=== PATIENT | male | born 1945 | race Caucasian/White ===

== ENCOUNTER 2018-10-22 19:20 | Inpatient (IN) | payer OTHER ==
[~2018-10-22] VITALS: Ht 160 cm; Wt 102.1 kg
--- NOTE | ~2018-10-22 | EEG ---
[facility] [place] [place] [address] ELECTROENCEPHALOGRAM Name: MAYRA ORDOÑEZ Room #: 216-P [facility] IN M.R.#: [id number] Admission: 10/22/18 Attend Phys: Shaji Goldman MD Discharge: Date of : 47 Report #: [id number] THIS REPORT FOR: //name// CC: Roderick Goldman DATE OF SERVICE: 10/23/2018 This patient's EEG was done by placing the electrode by standard 10-20 system of electrode placement. Both referential and sequential montages were used for recording. The patient's background activity is about 8-9 Hz and 30 microvolt. The patient went to sleep and that is associated with bilateral slowing and vertex sharp waves. Photic stimulation is unremarkable. Throughout the record, no active epileptiform activity was noticed. IMPRESSION: This patient's EEG is intermixed with some theta range slowing on both sides. That is a nonspecific abnormality, which can occur with drowsiness, effect of psychotropic medication, dementia, encephalopathy, etc. No active epileptiform activity was noticed. Thank you very much for this referral. By: [id number] Darci Vargas MD /nt
--- NOTE | ~2018-10-22 | HC ---
[facility] [place] [address] CONSULTATION Name: MAYRA ORDOÑEZ Room #: 216-P [facility] IN .R.#: [id number] Admission: 10/22/18 Attend Phys: Shaji Goldman MD Discharge: Date of : 46 Report #: [id number] THIS REPORT FOR: //name// CC: Roderick Goldman DATE OF SERVICE: 10/25/2018 HISTORY OF PRESENT ILLNESS: The patient is a 73-year-old white male admitted to [facility] with worsening confusion at home. He was noted to have markedly elevated blood pressure 240/110 at [place] and was transferred to [facility]. He was noted to have word finding problems, slurred speech and significant mental status issues. V/Q scan showed an old lacunar infarct. MRI of the brain was negative for a CVA. He was diagnosed with hypertensive encephalopathy as per Neurology. He is noted to have significant memory and cognitive deficits. His noted that he was having some problems with some confusion while driving approximately a month ago, but otherwise this is relatively recent. PAST MEDICAL HISTORY: Includes coronary artery bypass grafting, arthritis, hypertension. He has had 2 back surgeries, elevated cholesterol, chronic low back pain. HABITS: Former tobacco abuse, quit back in 1979. MEDICATIONS: Please see the full medication listing. SOCIAL HISTORY: Lives with , 2-ken house, can stay on the main level, premorbid single point cane ambulator, 3 steps in. works part-time, but is able to take time off to be with him. She does have a sister involved and they are involved neighbors. REVIEW OF SYSTEMS: Did not offer any current complaints of chest pain, shortness of breath or abdominal discomfort. PHYSICAL EXAMINATION: GENERAL: A 73-year-old overweight white male. He was confused and apparently was having some visual hallucinations of some dogs just prior to my coming in. He was uncertain regarding the place. He thought the year was 1919. He was correct, however, regarding the month and he knew who the president was. There is a definite latency to his responses. VITAL SIGNS: Temperature 98, pulse 72, respirations 18, blood pressure 110/54. Follows basic commands. HEENT: Facies are symmetric. EXTREMITIES: Functional range of motion of both upper and lower extremity strength is a grade 4- to 3+/5. DTRs are trace to 1. No focal calf swelling. [facility] [address] [place] [address] CONSULTATION Name: MAYRA ORDOÑEZ Room #: 216-P [facility] IN .R.#: [id number] Admission: 10/22/18 Attend Phys: Shaji Goldman MD Discharge: Date of : 46 Report #: [id number] Tone appeared to be intact. He was min assist with sit to stand. Gait was min assist 25 feet with a front-wheeled walker. He does have moderate cognitive and memory deficits per speech therapy. ASSESSMENT: A 73-year-old white male with the following problem list: 1. Hypertensive encephalopathy. 2. Functional mobility, ADLs and cognitive deficits. 3. Moderate cognitive and memory deficits. 4. Coronary artery disease with prior coronary artery bypass grafting. 5. Hyperlipidemia. 6. Exogenous obesity. 7. Chronic back pain with history of multiple failed surgeries. 8. Insomnia. PLAN: I would recommend an acute in-hospital inpatient rehabilitation stay. He has significant cognitive and functional deficits. He would benefit from a comprehensive rehabilitation program to maximize his functional independence and also to help educate the . Insurance precertification issues are being checked in too. Thank you for asking us to assist in this patient's care. By: [id number] Marvel Ramirez MD /[facility]
--- NOTE | ~2018-10-22 | HC ---
[facility] [place] [address] CONSULTATION Name: MAYRA ORDOÑEZ Room #: 216-P [facility] IN M.R.#: [id number] Admission: 10/22/18 Attend Phys: Shaji Goldman MD Discharge: Date of : 46 Report #: [id number] THIS REPORT FOR: //name// CC: Roderick Goldman DATE OF SERVICE: 10/27/2018 IDENTIFICATION: Psychiatric consultation is requested for hallucinations. HISTORY OF PRESENT ILLNESS: The patient is a 73-year-old , retired male with no past history of dementia, depression, guille, psychosis or anxiety. The patient is in the hospital after hypertensive emergency. He has been confused throughout his hospital stay and has been having active vivid visual hallucinations along with some agitation with regards to wanting to leave the hospital. He had taken some trazodone to help with sleep due to several nights without sleep. was concerned that the trazodone worsens his agitation and so it has been discontinued. He has not received any antipsychotics in this hospital stay. The patient's reports the patient took some Tylenol 3 about 6 weeks ago and began having some memory problems following that. She denies any past history of the patient having any psychosis and reports that he is far from baseline. On interview, the patient admits to having vivid visual hallucinations and having some confusion. ALLERGIES: PENICILLIN. MEDICATIONS: Reviewed. No active psychiatric medication. PAST MEDICAL HISTORY: Hypertension with hypertensive emergency, coronary artery disease status post coronary artery bypass graft in 2003, hyperlipidemia, chronic back pain, osteoarthritis. FAMILY HISTORY: Noncontributory. SOCIAL HISTORY: , lives with ___, no substance abuse reported. Labs reviewed and include a bilirubin of 1.3. MENTAL STATUS EXAMINATION: He is lethargic with poor attention, poor concentration, falls asleep easily on the interview. Speech is slurred. He endorses vivid visual hallucinations. No suicidal or homicidal ideation. No delusions. He does have confusion, poor short-term memory. Affect [facility] and [facility] [address] [place] [address] CONSULTATION Name: MAYRA ORDOÑEZ Nai [facility]: [facility] IN [facility].#: [id number] Admission: 10/22/18 Attend Phys: Shaji Goldman MD Discharge: Date of : 46 Report #: [id number] euthymic. Insight and judgment are poor. DIAGNOSIS: Delirium. PLAN: The patient currently with delirium of multifactorial etiology, hypertensive emergency appears to be a major contributing factor. Blood pressure is under much better control at this point, but I do note that the patient did have rapid changes in his blood pressure with some hypotension during his hospital stay and this could contribute ____ as well. Hopefully, patient's mental status will continue to clear. I do agree with on ____ medical workup to rule out any other causes. It is possible that the patient may have some mild underlying dementia, which has now been exacerbated by labile blood pressures. I offered to start a scheduled antipsychotic, the patient's declines at this time; however, she was agreeable to a low dose of Haldol to be given only in case of agitation ____ directed. I have ordered Haldol 1 mg IM q.4 p.r.n. Thank you for this consult ____. Please contact us with any urgent questions or concerns. By: [id number] Jaelyn Vásquez MD /nt
[2018-10-22 19:22] VITALS: BP 147/66
[2018-10-22] MEDS ORDERED: LIPITOR40 MG PO (20:42)
[2018-10-22] MEDS ORDERED: ASPIRIN325 PO (20:42)
[2018-10-22] MEDS ORDERED: TOPROL XL50 MG PO (20:43)
[2018-10-22] MEDS ORDERED: CELEBREX 200 M200 M1 PO (20:43)
[2018-10-22] MEDS ORDERED: CHLORTHALIDONE25 MG PO (20:44)
[2018-10-22] MEDS ORDERED: BENICAR40 MG PO (20:44)
[2018-10-22] MEDS ORDERED: NORVASC5 MG PO (20:45)
[2018-10-22 23:48] VITALS: BP 142/68
[2018-10-22 23:49] LABS: CHOLESTEROL 104 mg/dL (<200); HDL CHOLESTEROL 41 mg/dL (>40); LDL CHOLESTEROL 48 mg/dL (<100); TC:HDL 2.5 Ratio (Not establshd); TRIGLYCERIDE 76 mg/dL (<150); TROPONIN-I <0.06 ng/mL (<0.06); VLDL 15 mg/dL (<40)
[2018-10-22 23:53] LABS: SERUM ASSESSMENT Clear
[2018-10-23] VITALS (15 sets, daily range): BP systolic 148–201; BP diastolic 53–82
[2018-10-23 00:50] LABS: URINE BILIRUBIN NEGATIVE (Negative); URINE BLOOD NEGATIVE (Negative); URINE CLARITY CLEAR; URINE COLOR YELLOW; URINE GLUCOSE-RANDOM* NEGATIVE (Negative); URINE KETONES NEGATIVE (Negative); URINE LEUKOCYTES NEGATIVE (Negative); URINE NITRITE NEGATIVE (Negative); URINE PROTEIN (DIPSTICK) TRACE (Negative); URINE SPECIFIC GRAVITY 1.025 (1.005-1.035)
--- NOTE | 2018-10-23 01:10 | NUR ---
CODE STROKE ACTIVATED FOR ACUTE NEURO DEFICITS WITH SPEECH BEING MOST PROMINENT DEFICIT. SEE STROKE FLOWSHEET FOR NIH SCORE, VITALS, ETC. PT TO REMAIN ON THE UNIT.
[2018-10-23] MEDS ORDERED: LINZESS72 MCG PO (02:45)
[2018-10-23 05:05] LABS: APTT 23.3 Seconds (24.5-32.8); HEMOGLOBIN 13.8 gm/dL (14.0-18.0); INR 1.1; PROTIME 11.1 Seconds (9.3-11.4); WBC 6.1 thou/uL (4.0-11.0)
[2018-10-23 05:06] LABS: BASOPHILS 0.6 % (0.0-2.0); EOSINOPHILS 1.5 % (0.0-3.0); HEMATOCRIT 40.8 % (42.0-52.0); LYMPHOCYTES 32.2 % (24.0-44.0); MCH 30.7 pg (26.0-34.0); MCHC 33.9 % (28.0-37.0); MCV 90.6 fL (80.0-100.0); MONOCYTES 9.2 % (1.0-8.0); PLATELET COUNT 183 thou/uL (150-400); POLYS 56.5 % (36.0-66.0); RDW 13.3 % (10.5-14.5)
--- NOTE | 2018-10-23 05:07 | NUR ---
PT ARRIVED DIRECT ADMIT FROM [facility] VIA EMS AT 1900. ADMISSION HX AND ASSESSMENT COMPLETED CHARTED. NOTIFIED LARYNGOLOGIST STABLE HAND FOR HOSPITALIST OF NEW ADMIT AND NEED FOR ORDERS. UPON ADMISSION, PT WAS ORIENTED X4 BUT FORGETFUL. HE WAS ABLE TO HAVE CONVERSATIONS WITH NURSING STAFF AND FAMILY. DENIED ANY CURRENT PAIN WHILE AT REST. HOWEVER, HE STATED HE DOES HAVE CHRONIC BACK PAIN, MOSTLY WITH MOVEMENT AND ACTIVITY. BP STABLE. AROUND 2350, LARYNGOLOGIST FOR HOSPITALIST WENT TO PT'S ROOM AND FOUND HIM TO BE CONFUSED WITH SLURRED SPEECH AND EXPRESSIVE APHASIA. RN WAS CALLED TO PT'S ROOM. BP STABLE. CODE STROKE ACTIVATED. PT TAKEN TO CT SCAN. LARYNGOLOGIST UPDATED ON RESULTS. DR GORDILLO CONSULTED AND NOTIFIED OF PT EVENT. DR GORDILLO SPOKE WITH LARYNGOLOGIST REGARDING PT'S SYMPTOMS. NIH HAS SINCE IMPROVED. PT'S SPEECH IS MORE INTELLIGIBLE NOW AND APHASIA HAS IMPROVED. PT IS ABLE TO ANSWER QUESTIONS MORE EASILY WITH MORNING ASSESSMENT. PER PT'S REQUEST HE SAT IN CHAIR DURING THE NIGHT. PT SLEPT OFF AND ON DURING THE SHIFT. FALL PRECAUTIONS IN PLACE. PROGRESSING SLOWLY TOWARD POC GOALS. WILL CONTINUE TO MONITOR FURTHER.
--- NOTE | 2018-10-23 06:18 | NUR ---
PT DID NOT DRINK MUCH DURING THE NIGHT. VOIDED SMALL AMOUNT THIS MORNING. BLADDER SCAN PVR =203ML. PT ENCOURAGED DRINK SOME WATER TO STAY HYDRATED.
--- NOTE | 2018-10-23 07:57 | EKG ---
[place] [address] [facility] [place] [address] ELECTROCARDIOGRAM REPORT Name: NILSA ORDOÑEZRY Nai Room #: 216-P ADM IN M.R.#: [id number] Admission: 10/22/18 Attend Phys: Shaji Goldman MD Discharge: Date of : 47 Report #: [id number] THIS REPORT FOR: //name// [facility] Test Date: 2018-10-22 Test Time: 23:14:35 Pat Name: MAYRA ORDOÑEZ Department: Room: 216 P Gender: M Application Operations Engineer: JOHN : 1945 Requested By: Aydee Garner Order Number: [id number] MD: Moe Carlos Measurements Intervals [place] Rate: 65 P: 11 WA: 185 QRS: -12 QRSD: 128 T: -6 QT: 440 QTc: 458 Interpretive Statements Sinus rhythm Poor R wave progression Possible Inferior infarct, old Compared to ECG 12/07/2003 06:58:21 No significant change was found Electronically Signed On 10-23-2018 7:57:46 CDT by Moe Carlos [email or web address] <ELECTRONICALLY SIGNED> By: Moe Carlos MD, [facility] 10/23/18 [id number] Moe Carlos MD, [facility] /EPI
--- NOTE | 2018-10-23 08:46 | NUR ---
management coordinator to see patient. pt sitting upright in chair. pleasant disposition. patient recalls entire event last night. states he was having a difficult time speaking. symptoms resolved. I explained the next course of events to happen. patient concerned with MRI exam and states he cannot complete secondary to back pain. this rn spoke with nurse and requested an order be obtained prior to MRI. I will continue to follow this patients stay and continue to monitor.
--- NOTE | 2018-10-23 16:17 | NUR ---
Met with patient who admits with stroke like symptoms. Patient transferred to [facility] from [facility]. Patient independent with adls station captain. He reports all needs on one level. He does not drive. He uses a cane for ambulation and sleeps in reclyner. Patient hopeful for dc home soon. Casemgt following for dc planning.
--- NOTE | 2018-10-23 16:50 | 2DMMODE ---
[facility] [place] [address] 2 D/M-MODE ECHOCARDIOGRAM Name: MAYRA ORDOÑEZ Room #: 216-P [facility] IN ..#: [id number] Admission: 10/22/18 Attend Phys: Shaji Goldman MD Discharge: Date of : 47 Date of Service: 10/23/18 1650 Report #: [id number] THIS REPORT FOR: //name// APPROVED REPORT Study performed: 10/23/2018 13:16:21 EXAM: Comprehensive 2D, Doppler, and color-flow Echocardiogram Patient Location: Bedside Room #: 216 Status: routine BSA: 2.03 HR: 67 bpm BP: 201/81 mmHg Rhythm: NSR Other Information Study Quality: Fair Indications CVA/TIA CAD Hypertension/HDD Echo Enhancing Agent Indication: Rule out Shunt Agent(s) / Amount(s) Used: Agitated Saline 7 cc 2D Dimensions IVSd: 11.63 (7-11mm) LVOT Diam: 20.37 (18-24mm) LVDd: 47.89 mm PWd: 12.26 (7-11mm) Ascending Ao: 31.21 (22-36mm) LVDs: 30.92 (25-40mm) Aortic Root: 32.79 mm IVC: 14.00 mm Volumes Left Atrial Volume (Systole) Single Plane 4CH: 73.86 mL Single Plane 2CH: 69.01 mL LA ESV Index: 41.00 mL/m2 Aortic Valve AoV Peak Miles.: 1.89 m/s AO Peak Gr.: 14.33 mmHg LVOT Max P.73 mmHg LVOT Max V: 0.97 m/s TARAH Vmax: 1.66 cm2 [facility] [address] [place] [address] 2 D/M-MODE ECHOCARDIOGRAM Name: MAYRA ORDOÑEZ Room #: [address] [place] [address] [address] [facility]#: [id number] Admission: 10/22/18 Attend Phys: Shaji Goldman MD Discharge: Date of : 47 Date of Service: 10/23/18 1650 Report #: [id number] Tricuspid Valve TR Peak Miles.: 2.60 m/s TR Peak Gr.: 26.95 mmHg PA Pressure: 32.00 mmHg Left Ventricle The left ventricle is normal size. There is normal LV segmental wall motion. Mild concentric left ventricular hypertrophy. The left ventricular systolic function is normal. The left ventricular ejection fraction is within the normal range. LVEF is 50-55%. The left ventricular diastolic function is abnormal. Right Ventricle The right ventricle is normal size. The right ventricular systolic function is normal. Atria The left atrium size is normal. No shunting by contrast bubble injection The right atrium size is normal. Aortic Valve The aortic valve is mildly calcified. Mild aortic regurgitation. There is no aortic valvular stenosis. Mitral Valve The mitral valve is normal in structure. Trace to mild mitral regurgitation. No evidence of mitral valve stenosis. Tricuspid Valve The tricuspid valve is normal in structure. There is trace tricuspid regurgitation. Estimated PAP 32 mmHg. There is mild pulmonary hypertension. Pulmonic Valve The pulmonary valve is normal in structure. There is no pulmonic valvular regurgitation. Great Vessels The aortic root is normal in size. IVC is normal in size and collapses >50% with inspiration. Pericardium There is no pericardial effusion. <Conclusion> [facility] [address] [place] [address] 2 D/M-MODE ECHOCARDIOGRAM Name: MAYRA ORDOÑEZ Room #: 216-P [facility] IN M.R.#: [id number] Admission: 10/22/18 Attend Phys: Shaji Goldman MD Discharge: Date of : 47 Date of Service: 10/23/181649 Report #: [id number] The left ventricular systolic function is normal. There is normal LV segmental wall motion. LVEF is 50-55%. No shunting by contrast bubble injection The aortic valve is mildly calcified. Mild aortic regurgitation, no significant stenosis. The mitral valve is normal in structure. Trace to mild mitral regurgitation. There is trace tricuspid regurgitation. Estimated pulmonary artery pressure of 32 mmHg. There is no pericardial effusion. <ELECTRONICALLY SIGNED> By: Moe Carlos MD, [facility] 10/23/181649 49 49 Moe Carlos MD, FACC /INF
--- NOTE | 2018-10-23 19:44 | NUR ---
ASSUMED PATIENT CARE AT 0700. A/O X4 BUT FORGETFUL. NIH WAS 0. ELEVATED BP. PATIENT DENIES PAIN. UP WITH STANDBY. NOT WARDS TO POC GOALS.
[2018-10-24 00:45] VITALS: BP 165/71
--- NOTE | 2018-10-24 03:28 | NUR ---
ASSUMED PT CARE AT 1900. PT CONFUSED, BUT FOLLOWS SIMPLE COMMANDS. BLOOD PRESSURE ELEVATED EVEN AFTER A 1930 HYDRALAZINE WAS GIVEN. STEEL ROD BUSTER CONTACTED, CLONIDINE OREDERED WHICH SEEMED TO HELP. ASSESSMENT CHARTED. NO COMPLAINTS OF PAIN. PT CLOSE TO NURSING STATION, IN RECLINER. FALL PRECAUTIONS MAINTAINED. PT RESTED WELL THROUGH THE NIGHT. BP MONITORED AND TREATED APPROPRIATELY. PROGRESSING SLOWLY TOWARD PLAN OF CARE. WILL CONTINUE TO MONITOR.
[2018-10-24 04:45] VITALS: BP 180/84
[2018-10-24 09:15] VITALS: BP 190/95
[2018-10-24 12:29] VITALS: BP 125/54
[2018-10-24 16:00] VITALS: BP 88/51
--- NOTE | 2018-10-24 17:42 | NUR ---
ASSESSMENT CHARTED. PT ORIENTED TO SELF. VERY FORGETFUL AND CONFUSED. SCHEDULED BP MEDS GIVEN ORDERED. FALL PRECAUTION IN PLACE. WILL CONTINUE TO MONITOR.
[2018-10-24 20:24] VITALS: BP 140/50
--- NOTE | 2018-10-25 03:20 | NUR ---
ASSUMED PT CARE AT 1900. ORIENTED TO SELF, CONFUSED AND FORGETFUL. VITAL SIGNS STABLE, ASSESSMENT CHARTED. NO COMPLAINTS OF PAIN. PT REMAINED IN RECLINER THROUGH THE NIGHT. SEEMED CONFORTABLE. PT RESTED WELL THROUGH THE NIGHT. BLOOD PRESSURE STABLE WITHIN NORMAL LIMITS. PROGRESSING TOWARD PLAN OF CARE. WILL CONTINUE TO MONITOR.
[2018-10-25 05:12] VITALS: BP 96/44
[2018-10-25 07:40] VITALS: BP 129/64
[2018-10-25 11:39] VITALS: BP 110/54
--- NOTE | 2018-10-25 12:44 | NUR ---
Dc planning visit made with the pt and his at bedside. Pt is being evaluated by rehab medicine. [facility] acute rehab is out of network with the pt's ins plan. [facility] discussed. Pt is from [place], [place] and there are limited options closer to home. Pt's spouse agreeable to either referral as they are both close by the hospital. Dc naval surface fire support planner to fax referrals. Both accept the pt's Blue Medicare plan. Video swallow planned for today. Pt will likely be dc ready soon. [facility] both to eval and visit with the pt and his .
--- NOTE | 2018-10-25 13:13 | NUR ---
Nutrition: Received consult for heart healthy, low sodium education. Pt admitted with slurred speech, HTN urgency, confusion. Met with pt and prior to lunch; had primary questions as pt still struggling with some confusion. Hx HTN, CAD, hyperlipidemia, CABG. Past education, but needed review/reinforcement as they have gotten away from heart healthy diet the past few years. Dining out more frequently with people in their community. Reviewed healthier choices that are low in sodium, with encouragement to increase fruit and vegetable intake, choose plant protein sources like beans, nuts and identified different degree of fat content in meats. Healthy fats encouraged. See RD education note as well. Low nutrition risk. Likely d/c today/tomorrow.
--- NOTE | 2018-10-25 14:04 | NUR ---
FAXED REFERRAL TO [facility] SPOKE WITH KEYONNA IN ADM SHE RECEIVED REFERRAL AND DID A BEDSIDE VISIT WITH PT SHE REQUESTED PROG. NOTES TO SUBMIT FOR AUTH, PROG NOTES RECEIVED. FAXED REFERRAL TO [facility] SPOKE WITH ASUNCION IN ADM SHE RECEIVED REFERRAL AND WILL REVIEW. DCP TO FOLLOW.
--- NOTE | 2018-10-25 14:24 | NUR ---
CONSULT FOR [facility] RE[facility] FOR THIS Pt. [facility] IS OUT OF NETWORK WITH THIS PATIENT'S INSURANCE, THEREFORE WE WILL NOT BE ABLE TO ACCEPT THIS PATIENT. THANK YOU FOR THIS REFERRAL.
--- NOTE | 2018-10-25 16:11 | NUR ---
PT ALERT AND ORIENTED TO SELF WITH FORGETFULLNESS. VSS. NEW ORDERS NOTED. UP IN THE CHAIR THIS SHIFT. PLAN TO BE DISCHARGE TO REHAB IN AM. FALL PRECAUTION IN PLACE. WILL CONTINUE TO MONITOR.
[2018-10-25 20:16] VITALS: BP 106/46
--- NOTE | 2018-10-26 04:26 | NUR ---
ASSUMED CARE FROM DAY SHIFT PT ALERT TO SLEF AND PLACE BUT VERY IMPULSIVE WHEN NEEDING TO GET OUT OF CHAIR OR BED , AT BEDSIDE ASISSTING IN CARE, PT AWAKE MOST OF NIGHT UP AND DOWN FRONM BED TO CHAIR, HAD VERY LITTLE REST BLANKET MAKER SHOWS NSR , FREQ ROUNDING AND WILL WILL CONTINUE WITH CURRENT PLAN OF CARE.
[2018-10-26 05:32] VITALS: BP 147/64
[2018-10-26 07:57] VITALS: BP 123/53
--- NOTE | 2018-10-26 08:22 | NUR ---
ASSUMED CARE. HE IS SLID DOWN IN BEDSIDE RECLINER, HAS VOIDED IN UNDERWEAR, ON CHAIR, AND FLOOR. HIS IS ANGRY BECAUSE GLUE MAKER PLACED A TRASHCAN UNDER THE RECLINER TO KEEP HIM FROM GETTING UP UNASSISTED. REPORTEDLY HE IS VERY IMPULSIVE. IT TOOK THREE OF US TO STAND HIM; PRONOUNCED RETROVERTING. HE IS PROFOUNDLY CONFUSED. STATES HE IS NEVER LIKE THIS AND WISHES HIM TO BE TREATED HE REPORTEDLY HAS BEEN PRIOR. EXPLAINED TO HER THAT HE IS A DANGER TO HIMSELF AT THIS TIME D/T FALL RISK AND THAT I AM RESPONSIBLE FOR HIS SAFETY. SHE STATED SHE IS RESPONSIBLE FOR HIS SAFETY AND IS ANGRY ABOUT HER PERCEPTION THAT I AM TALKING DOWN TO HER. DIRECTOR OF CONSERVATION CALLED TO AMELIORATE SITUATION. FLOOR, CHAIR, PATIENT CLEANED. FALL PRECAUTIONS IN PLACE. WILL CONTINUE TO MONITOR.
[2018-10-26 10:34] LABS: ABSOLUTE NEUTROPHILS 5.8 thou/uL (1.4-8.2); BASOPHILS 0.7 % (0.0-2.0); EOSINOPHILS 1.5 % (0.0-3.0); HEMATOCRIT 41.9 % (42.0-52.0); HEMOGLOBIN 14.3 gm/dL (14.0-18.0); LYMPHOCYTES 15.5 % (24.0-44.0); MCH 30.9 pg (26.0-34.0); MCHC 34.1 g/dL (28.0-37.0); MCV 90.6 fL (80.0-100.0); MONOCYTES 8.1 % (1.0-8.0); PLATELET COUNT 180 thou/uL (150-400); POLYS 74.2 % (36.0-66.0); RBC 4.62 mil/uL (4.50-6.00); RDW 13.5 % (10.5-14.5); WBC 7.8 thou/uL (4.0-11.0)
[2018-10-26 10:53] LABS: URINE BILIRUBIN NEGATIVE (Negative); URINE BLOOD NEGATIVE (Negative); URINE CLARITY CLEAR; URINE COLOR YELLOW; URINE GLUCOSE-RANDOM* NEGATIVE (Negative); URINE KETONES NEGATIVE (Negative); URINE LEUKOCYTES-REFLEX NEGATIVE (Negative); URINE NITRITE-REFLEX NEGATIVE (Negative); URINE PROTEIN (DIPSTICK) NEGATIVE (Negative); URINE UROBILINOGEN 0.2 E.U./dl (0.2-1.0)
[2018-10-26 10:59] LABS: ALBUMIN 3.8 g/dL (3.4-5.0); CALCIUM 9.7 mg/dL (8.5-10.1); CREATININE 1.1 mg/dL (0.7-1.3); POTASSIUM 4.1 mmol/L (3.5-5.1); TOTAL BILIRUBIN 1.3 mg/dL (<0.1-1.0); TOTAL PROTEIN 7.2 g/dL (6.4-8.2)
[2018-10-26 12:02] VITALS: BP 159/80
[2018-10-26 15:56] VITALS: BP 163/86
[2018-10-26 19:43] VITALS: BP 151/71
--- NOTE | 2018-10-27 02:56 | NUR ---
ASSUMED CARE FROM DAY SHIFT , PT REMANINS CONFUSED TO SURROUNDING AND IMPULSIVE AT TIMES BED ALARM ON , AT BEDSIDE. PT TURNED EVERY 2 HOURS AND TYLENOL GIVEN FOR CHRONIC BACK PAIN. AUTOMOTIVE DIAGNOSTIC TECHNICIAN SHOWS NSR VSS. REMANIN CONFUSED AND RESTLESS THROUGHOUT HOURLY ROUNDS.
[2018-10-27 04:33] VITALS: BP 158/76
[2018-10-27 08:00] VITALS: BP 138/67
[2018-10-27 11:56] VITALS: BP 93/47
--- NOTE | 2018-10-27 15:11 | NUR ---
VSS REMAINS SB TO NSR RATE 55-70, LUNGS CLEAR AND DIMINISHED, O2 SAT RA IS 96%. PT REMAINS DROWSY TODAY WITH EYES CLOSED, ORIENTED TO NAME AND SOMETIMES PLACE. DAY PROGRESSED PT HAS BECOME MORE ALERT AND ORIENTED TO NAME, PLACE, SITUATION. FOLLOWS COMMANDS. PT APPETITE O% AT BREAKFAST, LUNCH 75%. TOLERATING PUREED DIET. UP IN CHAIR ALL DAY AND TOLERATING WELL. WILL CONTINUE TO MONITER AND CARE FOR PT PER PLAN OF CARE
[2018-10-27 16:59] VITALS: BP 112/50
[2018-10-27 20:24] VITALS: BP 144/61
[2018-10-28] VITALS (9 sets, daily range): BP systolic 143–176; BP diastolic 72–80
--- NOTE | 2018-10-28 03:08 | NUR ---
ASSESSMENT CHARTED. VSS. AT BEDSIDE THROUGHOUT NIGHT. A&O 1-3, DENIES PAIN, N/V, DIZZINESS, SOA. PT X1 ASSIST CHAIR TO BATHROOM, BACK TO CHAIR PREFERS TO SLEEP THERE. SLEEPING WELL THROUGHOUT THE NIGHT. PLAN FOR MRI THIS AM. WILL CONTINUE TO MONITOR AND WITH POC.
[2018-10-28] MEDS ORDERED: ACETAMINOPHEN325 M1 PO (13:16)
[2018-10-28] MEDS ORDERED: ASPIRIN325 PO (13:16)
[2018-10-28] MEDS ORDERED: BYSTOLIC10 MG PO (13:16)
--- NOTE | 2018-10-28 13:19 | NUR ---
spoke with patient and spouse, family in room. Patient progressed with therapy today. reports plan for home with HH and no longer acute rehab. Discussed HH and verified addresss. PCP Dr Roderick Lincoln. Agreeable to any HH agency that services their area. DC strategic planner to inquire.
--- NOTE | 2018-10-28 15:17 | NUR ---
FAXED DC ORDERS/SUMMARY TO [facility] SPOKE WITH DIONNE IN INTAKE SHE RECEIVED DC ORDERS AND WILL NOTIFY PT TIME OF VISITS.
== END 2018-10-28 17:09 | disposition home health service (06) | DRG 77 ==
LOC: 2N 19:20 → ENTRNSPT 10-28 16:11 → 2N 10-28 17:09
PROVIDERS: Nurse Practitioner Acute Care; Psychiatry & Neurology Neurology; ADMIT Internal Medicine
DX: I67.4 Hypertensive encephalopathy (principal); G92 Toxic encephalopathy; G45.9 Transient cerebral ischemic attack, unspecified; I16.0 Hypertensive urgency; M54.5 Low back pain; M19.90 Unspecified osteoarthritis, unspecified site; E78.00 Pure hypercholesterolemia, unspecified; G47.9 Sleep disorder, unspecified; I10 Essential (primary) hypertension; G89.29 Other chronic pain; E78.5 Hyperlipidemia, unspecified; I25.10 Atherosclerotic heart disease of native coronary artery without angina pectoris; R41.0 Disorientation, unspecified; G47.00 Insomnia, unspecified; E66.8 Other obesity; Z86.73 Personal history of transient ischemic attack (TIA), and cerebral infarction without residual deficits; Z95.1 Presence of aortocoronary bypass graft; Z68.39 Body mass index [BMI] 39.0-39.9, adult; Z88.0 Allergy status to penicillin; Z87.891 Personal history of nicotine dependence
CPT/HCPCS: 10081

== ENCOUNTER → 2019-10-07 | Outpatient (CLI) | payer OTHER ==
[~2019-10-07] MED LIST: ACETAMINOPHEN325 M1 PO; ASPIRIN325 PO; BENICAR40 MG PO; BYSTOLIC10 MG PO; CELEBREX 200 M200 M1 PO; CHLORTHALIDONE25 MG PO; LINZESS72 MCG PO; LIPITOR40 MG PO; NORVASC5 MG PO; TOPROL XL50 MG PO
== END ==
LOC: SJCVC 11:15
PROVIDERS: ATTEND Internal Medicine Cardiovascular Disease
DX: I45.10 Unspecified right bundle-branch block (principal); R94.31 Abnormal electrocardiogram [ECG] [EKG]; I25.810 Atherosclerosis of coronary artery bypass graft(s) without angina pectoris; E78.00 Pure hypercholesterolemia, unspecified; I10 Essential (primary) hypertension; M54.9 Dorsalgia, unspecified; G89.29 Other chronic pain; M19.90 Unspecified osteoarthritis, unspecified site; Z79.82 Long term (current) use of aspirin; Z79.899 Other long term (current) drug therapy; Z82.49 Family history of ischemic heart disease and other diseases of the circulatory system; Z95.1 Presence of aortocoronary bypass graft; Z87.891 Personal history of nicotine dependence

== ENCOUNTER → 2020-06-25 | Outpatient (CLI) | payer OTHER | LOC: SJCVC 10:29 | PROVIDERS: ATTEND Internal Medicine Cardiovascular Disease | DX: R94.31 Abnormal electrocardiogram [ECG] [EKG] (principal); I45.10 Unspecified right bundle-branch block; I25.10 Atherosclerotic heart disease of native coronary artery without angina pectoris; I10 Essential (primary) hypertension; E78.00 Pure hypercholesterolemia, unspecified; M54.9 Dorsalgia, unspecified; G89.29 Other chronic pain; Z95.1 Presence of aortocoronary bypass graft; Z79.82 Long term (current) use of aspirin; Z79.899 Other long term (current) drug therapy; Z87.891 Personal history of nicotine dependence; Z72.89 Other problems related to lifestyle; Z88.0 Allergy status to penicillin; Z88.5 Allergy status to narcotic agent ==

== ENCOUNTER → 2021-01-06 | Outpatient (CLI) | payer BC | LOC: SJCVC 12:38 | PROVIDERS: ATTEND Internal Medicine Cardiovascular Disease | DX: R94.31 Abnormal electrocardiogram [ECG] [EKG] (principal); I45.19 Other right bundle-branch block; I25.810 Atherosclerosis of coronary artery bypass graft(s) without angina pectoris; I10 Essential (primary) hypertension; E78.00 Pure hypercholesterolemia, unspecified; I65.23 Occlusion and stenosis of bilateral carotid arteries; M54.9 Dorsalgia, unspecified; G89.29 Other chronic pain; M19.90 Unspecified osteoarthritis, unspecified site; Z82.49 Family history of ischemic heart disease and other diseases of the circulatory system; Z87.891 Personal history of nicotine dependence; Z72.89 Other problems related to lifestyle; Z79.82 Long term (current) use of aspirin; Z79.899 Other long term (current) drug therapy; Z88.0 Allergy status to penicillin; Z88.5 Allergy status to narcotic agent; Z88.8 Allergy status to other drugs, medicaments and biological substances ==

== ENCOUNTER → 2021-01-24 | Outpatient (CLI) | payer BC | LOC: SJCVCIMAG 10:06 | PROVIDERS: ATTEND Internal Medicine Cardiovascular Disease | DX: R94.31 Abnormal electrocardiogram [ECG] [EKG] (principal); I25.10 Atherosclerotic heart disease of native coronary artery without angina pectoris ==